=== PATIENT | male | born 1985 | race Caucasian/White ===

== ENCOUNTER 2024-09-02 11:58 | Inpatient (IN) | payer BC, SELFPAY ==
[2024-09-02] VITALS (15 sets, daily range): BP systolic 106–129; BP diastolic 66–88; PULSE 64–107; RESP 14–22; TEMP 36.6–37.3; O2SAT 96–99; BMI 27.1; BMI 24.8
--- NOTE | 2024-09-02 12:13 | EDS_ITS ---
HPI History of Present Illness Chief Complaint: Seizure Informant: patient Onset/Context/Timing Onset: Today Context: Sudden Onset Quality: Tired Location: Generalized Worsened by: Nothing Relieved by: Nothing Narrative Narrative: Patient presents with possible seizure that occurred today. Patient does not remember any of the events around this. Patient states he remembers waking up this morning and drinking coffee. Patient remembers going to work. Patient remembers doing things at work today. Patient then remembers waking up in the ambulance. Patient admits to a left frontal headache but denies any other headaches. Patient denies any nausea or vomiting. Patient states he feels tired. Patient states he had been drinking 4-5 drinks of alcohol per day but quit 5 days ago. Patient denies any chest pain or shortness of breath. Patient admits to some nausea but denies any vomiting. PFSH PFSH Medical History Marijuana abuse Alcohol abuse Allergy/AdvReac Type Severity Reaction Status Date / Time No Known Allergies Allergy Verified 09/02/24 12:03 Family History no significant family his Surgical History no surgical history Social History (Updated 09/02/24 @ 12:[address] Dain Dowd, DO) Smoking Status: Never smoker alcohol intake: current alcohol intake frequency: 3 or more drinks per day Alcohol type: beer details: Quit 5 days ago ROS ROS ED Constitutional Constitutional ED: Denies chills or fever(s) Eyes Eyes: Denies blurry vision or change in vision ENT ENT ED: Denies rhinorrhea or sore throat Cardiovascular Cardiovascular: Denies chest pain or palpitations Respiratory/Chest Respiratory/Chest: Denies cough or dyspnea Gastrointestinal Gastrointestinal: Reports nausea; Denies vomiting Genitourinary Genitourinary ED: Denies dysuria or hematuria Musculoskeletal Musculoskeletal: Denies back pain or neck pain Integumentary Denies abscess or rash Neurologic Neurologic: Reports headache(s); Denies weakness Allergic/Immunologic Allergic/Immunologic ED: Denies mouth swelling or urticaria EXAM Physical Exam Const Vital Signs: 09/02/24 11:59 09/02/24 12:58 09/02/24 13:00 Temperature 98 F Temperature Source Oral Pulse Rate 85 78 78 Respiratory Rate 16 16 16 Blood Pressure 111/88 H 110/82 H 108/78 Blood Pressure Mean 95 91 88 Pulse Ox 98 99 99 Oxygen Delivery Method Room Air 09/02/24 14:00 Temperature Temperature Source Pulse Rate 74 Respiratory Rate 16 Blood Pressure 106/74 Blood Pressure Mean 84 Pulse Ox 99 Oxygen Delivery Method Positive well nourished and well developed General Appearance ED: well developed and NAD HEENT Reports moist mucous membranes HEENT Narrative: There is some dried blood noted in the right nares. There is some edema and ecchymosis over the left periorbital area. There is no bony crepitance or step- off noted. trauma and tenderness Eyes PERRL and EOMs intact bilaterally Neck supple and no JVD Resp normal respiratory effort and clear to auscultation bilaterally Cardio regular rate and regular rhythm GI non-tender and non-distended Palpation: soft Extremity normal to inspection General Extremety ED: Negative for edema or tenderness General Extremity: Negative for edema Neuro oriented x3, CN's II-XII intact bilaterally and no sensory deficits noted Sensorium / Orientation: alert Motor Exam: strength 5/5 throughout Psych mental status grossly normal MDM MDM MDM Narrative Medical decision making narrative: Differential diagnosis includes alcohol withdrawal seizure, electrolyte abnormality, intracranial bleeding, syncopal episode, and dehydration. CT scan of the brain will be obtained to assess for intracranial bleeding. CBC will be obtained to assess for leukocytosis and anemia. Comprehensive metabolic profile will be obtained to assess for hepatic function, renal function, and electrolyte abnormality. PT with INR and PTT will be obtained to assess for coagulopathy. Lab Data Attestation: I reviewed the patient's lab results. Lab results narrative: CBC was reviewed and was within normal limits. Comprehensive metabolic profile was reviewed and was essentially within normal limits. PT with INR and PTT were reviewed and were within normal limits. Lipase was reviewed and was normal at 56. Serum alcohol level was reviewed and was less than 3.0. Labs: Laboratory Results - last 24 hr 09/02/24 11:14 WBC 10.7 RBC 4.68 Hgb 15.0 Hct 44.5 MCV 95.1 H MCH 32.1 H MCHC 33.7 RDW Std Deviation 41.4 RDW Coeff of Melvin 11.9 Plt Count 224 MPV 11.0 Immature Gran % (Auto) 0.300 Neut % (Auto) 47.9 Lymph % (Auto) 40.3 [place] % (Auto) 5.8 Eos % (Auto) 4.6 Baso % (Auto) 1.1 H Absolute Neuts (auto) 5.1 Absolute Lymphs (auto) 4.30 Nucleated RBC % 0 PT 13.0 INR 1.0 APTT 25.3 Sodium 139 Potassium 3.8 Chloride 106 Carbon Dioxide 22.0 Anion Gap 11 BUN 20 H Creatinine 1.27 Estim Creat Clear Calc 84.00 Est GFR (MDRD) Af Amer 82 Est GFR (MDRD) Non-Af 67 BUN/Creatinine Ratio 15.7 Glucose 95 Calcium 8.8 Total Bilirubin 0.30 AST 10 L ALT 23 Alkaline Phosphatase 66 Total Protein 7.4 Albumin 4.0 Globulin 3.4 Albumin/Globulin Ratio 1.2 Lipase 56 Ethyl Alcohol < 3.0 Radiography Diagnostic Testing: Clinical Impression(s) from Imaging Studies Brain CT 09/02/24 12:21 IMPRESSION: Normal CT brain without intravenous contrast. Electronically Signed: Nigel Cope MD at 13:22 EST , CT scan of the brain was obtained. There is no acute intracranial abnormality. This was interpreted by the radiologist and was also independently reviewed by myself. Management Discussion w/another healthcare provider: Hospitalist Treatment and Re-Evaluation :: Seizure precautions were maintained. Patient had no further seizure activity here. Patient is given IV fluids. Case was discussed with the hospitalist. She will admit the patient to her service. Patient understood and was agreeable with the plan. All questions were answered. Discharge Plan Triage Chief Complaint: Seizure ED Provider: Dain Dowd Dx/Rx/DC Orders Clinical Impression: Alcohol withdrawal seizure, Contusion of periorbital region, left, Closed head injury Primary Care Provider: Link Lazaro Referrals: Link Lazaro PA [Primary Care Provider] - Print Language: Estonian Disposition Disposition: Acute Care Hospital [facility]
--- NOTE | 2024-09-02 12:21 | CT_ITS ---
EXAM: CT HEAD WITHOUT INTRAVENOUS CONTRAST CLINICAL INDICATION: Seizure TECHNIQUE: Multiple axial images were obtained of the head without intravenous contrast. This CT exam was performed using one or more of the following dose reduction techniques: automated exposure control, adjustment of the mA and/or kV according to patient size, and/or use of iterative reconstruction technique. COMPARISON: No relevant prior studies available. FINDINGS: BRAIN AND EXTRA-AXIAL SPACES: Normal. Normal brain attenuation. No intra- or extra-axial hemorrhage. No acute infarct. No intracranial mass or mass effect. There is preservation of the gao/white matter interface. Posterior fossa structures are unremarkable. Ventricles are appropriate for age. No hydrocephalus. Basal cisterns are patent. BONES/JOINTS: Normal calvarium. SINUSES: No acute sinusitis. MASTOID AIR CELLS: Normal. Clear. CT/Brain/Head without Contrast IMPRESSION: Normal CT brain without intravenous contrast. Electronically Signed: Nigel Cope MD at 13:22 EST ,
[2024-09-02] MEDS: 0.9% Normal Saline (1000mL) 1,000 ML 1000 ML IV (12:36)
[2024-09-02 12:46] LABS: Absolute Neutrophil Count 5.1 X10^3/uL (2.0-7.7); Basophil# 0.12 X10^3/uL; Basophil% 1.1 % (0-1); Eosinophil# 0.49 X10^3/uL; Eosinophils% 4.6 % (0-5); Hematocrit 44.5 % (40-54); Lymphocyte % 40.3 % (19-41); Mean Corp Hgb Conc 33.7 g/dL (32-36); Mean Corpuscular Hgb 32.1 pg (27.0-32.0); Mean Corpuscular Volume 95.1 fL (80-94); Monocyte# 0.62 X10^3/uL; Monocyte% 5.8 % (0-10); NRBC Flagged by Analyzer 0 % (0-5); Neutrophil % 47.9 % (47-70); Platelet Count 224 K/mm3 (150-450); RBC Distribution Width CV 11.9 % (11.6-14.6); RBC Distribution Width SD 41.4 fl (35.1-43.9); Red Blood Count 4.68 M/mm3 (4.6-6.2); White Blood Count 10.7 K/mm3 (4.4-11.0)
[2024-09-02 12:52] LABS: Partial Thromboplast Time 25.3 Seconds (24.1-36.2)
[2024-09-02 12:56] LABS: Alcohol, Blood (Medical)-Serum < 3.0 mg/dL
[2024-09-02 13:01] LABS: ALB/GLOB Ratio 1.2 RATIO (0.9-2.4); AST(SGOT) 10 U/L (15-37); Alanine Aminotransfer ALT/SGPT 23 U/L (16-61); Alkaline Phosphatase 66 U/L (45-117); Anion Gap 11 (5-15); BUN 20 mg/dL (7-18); BUN/Creat Ratio 15.7 RATIO (10-20); Calcium,Total 8.8 mg/dL (8.5-10.1); Chloride 106 mmol/L (98-107); Creatinine, Serum 1.27 mg/dL (0.70-1.30); EST Glomerular Filtration Rate 67 mL/min (>60); Est Glom Filt Rate - Afr Amer 82 mL/min (>60); Globulin 3.4 g/dL (2.2-4.2); Glucose 95 mg/dL (74-106); Lipase 56 U/L (13-75); Potassium 3.8 mmol/L (3.5-5.1); Protein, Total 7.4 g/dL (6.4-8.2); Sodium Level 139 mmol/L (136-145)
--- NOTE | 2024-09-02 13:59 | HP.PCM.HOS_ITS ---
HPI - General General Date of Admission: 09/02/24 Date of Service: 09/02/24 Chief Complaint: Seizure HPI Narrative MARKEL CARTAGENA, is a 39 M who presented to the emergency department [facility] on 09/02/2024 after he suffered a suspected seizure. Patient reports about 5 days ago he quit drinking alcohol and had been drinking about 5 beers daily over the last 5 years. He states sometimes he drinks more and sometimes he drinks less. He quit cold turkey about 5 days ago and had been doing well but today while he was at work he had an event where he fell and does not remember any of the circumstances surrounding the event. He stated he remembered getting up eating breakfast and drinking coffee, going to work this morning, and then remembers waking up in the ambulance. He did not have any loss of bowel or bladder function and denies biting his tongue. Exam for this is unremarkable. He has had no nausea or vomiting but states he feels tired now. He quit smoking about 5 years ago and has used marijuana intermittently but no recent use. During his fall he hit his head and appeared to be unguarded with protective extension and he has a large ecchymotic area over his left eye Vital signs on presentation demonstrated a temperature of 98, heart rate 85, respiratory rate 16, blood pressure 111/88, pulse ox 98% on room air. CBC is overtly unremarkable other than macrocytosis is noted with a normal hemoglobin. Coags are normal. Chemistry panel is unremarkable. Lipase is normal. Alcohol level is less than 3. CT of the head was done due to trauma and was normal. This is suspected to be an alcohol withdrawal seizure. Patient has not ever stopped drinking for extended period of time and never had withdrawal seizure previously. Will admit to complete workup. [facility], [facility] Medical History Marijuana abuse Alcohol abuse Allergy/AdvReac Type Severity Reaction Status Date / Time No Known Allergies Allergy Verified 09/02/24 12:03 Family History no significant family his no significant family history Surgical History no surgical history no surgical history Social History (Updated 09/02/24 @ 14:[address] Natalie Adams, ) household members: significant other housing: house current occupational status: employed current occupation: Works at [employer] in [place] Smoking Status: Former smoker how long ago did patient quit smokin years ago alcohol intake: current alcohol intake frequency: 3 or more drinks per day Alcohol type: beer details: Quit 5 days ago substance use type: former substance user Date of last use: Marijuana ROS Constitutional Constitutional: Denies anorexia, change in weight, chills, fatigue, fever(s), malaise, night sweats, weakness or other Eyes Eyes: Denies blurry vision, change in eye color, change in vision, discharge from eye(s), double vision, erythema, eye pain, loss of vision or other ENT HEENT: Reports headache(s); Denies abnormal hearing, dysphagia, ear pain, epistaxis, hearing loss, nasal congestion, nasal discharge, post nasal drip, sinus pressure, sore throat or other Cardiovascular Cardiovascular: Denies chest pain, claudication, dyspnea on exertion, edema, lightheadedness, orthopnea, palpitations, paroxysmal nocturnal dyspnea, rapid heart rate, syncope or other Respiratory/Chest Respiratory/Chest: Denies cough, dyspnea, excessive phlegm production, hemoptysis, productive cough, shortness of breath at rest, shortness of breath with exertion, wheezing or other Gastrointestinal Gastrointestinal: Denies abdominal pain, coffee ground emesis, constipation, diarrhea, dyspepsia, hematemesis, hematochezia, loose stools, melena, nausea, vomiting or other Genitourinary Genitourinary: Denies burning urination, difficulty urinating, dysuria, hematuria, nocturia, urinary frequency, urinary hesitancy, urinary incontinence, urinary urgency or other Musculoskeletal Musculoskeletal: Denies arthralgias, back pain, joint pain, joint stiffness, joint swelling, myalgias, neck pain or other Neurologic Neurologic: Reports seizures; Denies abnormal gait, abnormal speech, confusion, disequilibrium, dizziness, focal weakness, headache(s), numbness, paresthesias, seizure-like activity, syncope, tingling, tremor(s) or other Psychiatric Psychiatric: Reports other Details: Hearing abnormal conversations of what appears to be a different language or gibberish Endocrine Endocrinology: Denies change in body appearance, cold intolerance, excessive sweating, heat intolerance, polydipsia, polyuria or other Hematologic/Lymphatic Hematologic/Lymphatic: Denies anemia, easy bleeding, easy bruising, lymphadenopathy or other Allergic/Immunologic Allergic/Immunologic: Denies rhinitis, hives, eczemia, asthma or other Vital Signs Vital Signs Vital Signs: 09/02/24 11:59 09/02/24 12:58 09/02/24 13:00 Temperature 98 F Temperature Source Oral Pulse Rate 85 78 78 Respiratory Rate 16 16 16 Blood Pressure 111/88 H 110/82 H 108/78 Blood Pressure Mean 95 91 88 Pulse Ox 98 99 99 Oxygen Delivery Method Room Air Weight Weight: 88.4 kg Body Mass Index (BMI) 27.1 Physical Exam Const alert, oriented x3, no apparent distress, average body habitus, healthy appearing and well nourished Constitutional Narrative: Middle-aged, white male, sitting up in bed, significant other at bedside, patient appears comfortable, nontoxic appearing, slight lapses in memory during conversation but alert and oriented x 3 General Appearance: cooperative HEENT normocephalic, hearing grossly normal bilaterally and moist oral mucous membranes HEENT Narrative: Blood coming out of right nares that is dried, left lateral supraorbital edema and ecchymosis with superficial abrasions, Mallampati 2, no thrush, dentition is good Eyes PERRL, EOMs intact bilaterally and conjunctivae normal Eyes Narrative: No scleral icterus Resp normal respiratory effort, no retractions, no use of accessory muscles and clear to auscultation bilaterally Auscultation: Negative for rales, rhonchi or wheezes Cardio regular rate, regular rhythm, S1 normal heart sound, S2 normal heart sound, no murmurs, no rub, no gallops and no clicks GI normal to inspection, nondistended, normoactive bowel sounds, soft to palpation, non-tender and non-distended Extremity no clubbing, cyanosis or edema Neuro oriented x3, CN's II-XII intact bilaterally, moves all extremities and no focal motor deficits Speech: speech normal Psych affect normal Psych Narrative: Interacts appropriately however does have some intermittent lapses in memory, pleasant, eye contact is good Results Lab / Micro Data 09/02/24 11:14 09/02/24 11:14 Labs: Laboratory Results - last 24 hr 09/02/24 11:14: WBC 10.7, RBC 4.68, Hgb 15.0, Hct 44.5, MCV 95.1 H, MCH 32.1 H, MCHC 33.7, RDW Std Deviation 41.4, RDW Coeff of Melvin 11.9, Plt Count 224, MPV 11.0, Immature Gran % (Auto) 0.300, Neut % (Auto) 47.9, Lymph % (Auto) 40.3, [place] % (Auto) 5.8, Eos % (Auto) 4.6, Baso % (Auto) 1.1 H, Absolute Neuts (auto) 5.1, Absolute Lymphs (auto) 4.30, Nucleated RBC % 0, PT 13.0, INR 1.0, APTT 25.3, Sodium 139, Potassium 3.8, Chloride 106, Carbon Dioxide 22.0, Anion Gap 11, BUN 20 H, Creatinine 1.27, Estim Creat Clear Calc 84.00, Est GFR (MDRD) Af Amer 82, Est GFR (MDRD) Non-Af 67, BUN/Creatinine Ratio 15.7, Glucose 95, Calcium 8.8, Total Bilirubin 0.30, AST 10 L, ALT 23, Alkaline Phosphatase 66, Total Protein 7.4, Albumin 4.0, Globulin 3.4, Albumin/Globulin Ratio 1.2, Lipase 56, Ethyl Alcohol < 3.0 Imaging Radiology Impression Brain CT 09/02/24 12:21 IMPRESSION: Normal CT brain without intravenous contrast. Electronically Signed: Nigel Cope MD at 13:22 EST Reading Location ID and State: [address] [place] [address] Tel , Service support , Assessment & Plan Assessment/Plan (1) Seizure: (2) Contusion of periorbital region, left: (3) Closed head injury: (4) Alcohol abuse: PLAN: Plan Seizure -New onset -Highly suspect alcohol withdrawal seizure next-patient's last drink was 5 days ago -Check MRI with and without contrast -Check EEG -Seizure precautions -Phenobarb for alcohol withdrawal and as needed Ativan available -Will consult neurology to obtain their opinion Alcohol abuse -Patient states he has been drinking for about 5 years without stopping -Last drink was about 5 days ago -States he is currently drinking about 5 beers a day when he was drinking but a lot of those were higher percentage alcohol-based beers -Phenobarbital taper -CIWA with as needed Ativan -Thiamine and folate -As needed medications for alcohol detox symptom management -180 consultation Closed head injury/left eye contusion -Highly suspect concussion -Thought process is a little scattered at this point -MRI pending -No orbital fracture noted on CT of the head and CT of the brain was otherwise unremarkable -As needed ice -Patient is aware that his bruising will likely get worse before gets better Hearing voices -Patient indicated that he was to have an upcoming CT because when he is having conversations he will hear statements being made that are not in the Sami language and is unable to relay exactly what they are but it happens on a daily basis -This is part of the reason he stopped drinking -Workup as above -Consider outpatient psychiatry follow-up depending on findings History of tobacco abuse -Remote -Encouraged ongoing cessation History of marijuana use -Patient states he is no longer using DVT prophylaxis -Low risk -Encourage frequent and early ambulation CODE STATUS -Full code Charges/Coding Visit Charges Inpatient E&M: 05674 Init Hosp L2
--- NOTE | 2024-09-02 15:20 | CASEMGMT ---
Care Management Face to Face with patient for initial transition planning/care coordination assessment in the ED. This commercial lines underwriter introduced self and role at [facility]. Patient lying in bed, alert and oriented. Patient's Harmeet, bedside; permission given to speak with patient's present. Patient willing to participate in assessment and is able to answer all questions appropriately. Care providers, pharmacy, and demographics verified. Admitting Diagnosis: Seizure; Contusion of periorbital region, left; Closed head injury; Alcohol abuse Other diagnosis history: marijuana abuse; alcohol abuse PCP: AMINTAA Rea (patient stated needing to get a new PCP due to patient's current PCP no longer being covered under insurance) Specialists: none Preferred Pharmacy: [facility] in [place] Insurance: [place] Prescription Benefit: yes Living Will/HPOA: none; patient denies needing information during admission LNOK: Harmeet. is currently 23 weeks with a baby boy. Living Arrangements: patient lives with in a 2 story home with 4 steps to enter; full flight of stairs to go up to bedroom and bathroom; independent with all ADLs. Transportation: patient drives DME: none HHC: none SNF/Rehab: none Patient goals: Patient wishes to discharge home and denies need for SNF or HHC at this time. Patient states he has no further needs or concerns. Disposition Plan: admission to acute; RN CM/SW to follow for discharge planning needs that may arise. Mary Vera, SHUTTLE TRUCK DRIVER, SCIENTIFIC INFORMATICS LEADER
[2024-09-02] MEDS: Phenobarbital 32.4 MG Tablet 97.2 MG PO (17:39)
--- NOTE | 2024-09-02 18:32 | PN.HOSP_ITS ---
Hospitalist Note DIRECTOR IT called and MRI as patient was there for MRI with contrast and patient had a generalized tonic-clonic seizure. He was given 4 mg of Ativan. The initial 2 mg were given to abort the seizure the second 2 mg were given due to extreme agitation and marked combativeness. He did require leta for short period of time and he was transferred to the intensive care unit. Given this is his second seizure today I will stop the phenobarbital and load him with Keppra 1000 mg and start Keppra twice daily. He still need an EEG and MRI with and without contrast. For his agitation, we will go ahead and start Precedex for now. Neuro consult is pending. MRI will have to be tried tomorrow. Continue seizure precautions. ICU consultation. Initially we felt that this was withdrawal seizures however I do question whether or not there is something going on intracranially. He did have phenobarbital at about 530 orally.
[2024-09-02] MEDS: dexMEDEtomidine 400 MCG in 0.9% Normal Saline (100mL Bag) 96 ML 10.1 MCG CONT INF (18:50)
[2024-09-02] MEDS: levETIRAcetam IV 1,000 MG/100 ML BAG 400 MG IV (18:50)
[2024-09-03] VITALS (18 sets, daily range): BP systolic 85–134; BP diastolic 44–84; PULSE 54–97; RESP 10–18; TEMP 36.6–37.6; O2SAT 95–99; BMI 24.3
[2024-09-03] MEDS: dexMEDEtomidine 400 MCG in 0.9% Normal Saline (100mL Bag) 96 ML 10.1 MCG CONT INF (03:32)
[2024-09-03] MEDS: TITRATION PARAMETER CHANGE 1 EACH IV (05:19)
--- NOTE | 2024-09-03 06:12 | EX.PCM.CONCC ---
Assessment & Plan Assessment/Plan (1) Alcohol abuse: (2) Seizure: PLAN: Plan RECOMMENDATIONS: 1. Complete MRI brain this afternoon. 2. EEG has been completed with read pending. 3. Okay to discontinue Precedex and resume phenobarbital taper. 4. Continue thiamine and folic acid. 5. Continue seizure precautions and as needed Ativan. 6. Continue Keppra, pending neurology evaluation. IMPRESSIONS: 1. New onset seizures in the setting of alcohol withdrawal The patient presented to the hospital with questionable new onset seizure activity in the setting of acute alcohol withdrawal. The patient has an extensive alcohol dependency history and quit cold turkey approximately 6 days ago. At this time, the patient has been appropriately loaded on Keppra and will be maintained on seizure precautions with as needed Ativan. In the interim, MRI brain is pending along with EEG. Once testing is completed, recommend neurology evaluation. Otherwise, recommend restarting phenobarbital taper for alcohol withdrawal and continuing thiamine and folic acid. 2. History of tobacco and marijuana dependency Complicates care, management, recovery and prognosis. Continue supportive measures as noted above. This note was generated with [employer] dictation software. It may contain incorrect words, spelling, and punctuation that were not noted in checking the note before signing. HPI Consult Data Date of Consult: 09/03/24 HPI Narrative Reason for Consultation: Alcohol withdrawal with seizures HPI Narrative: The patient is a 39-year-old male, with a history as outlined below, who presented to the emergency department via EMS on September 02 with suspicion that he suffered from a seizure. The patient has a longstanding alcohol dependency history, but stated that he quit drinking approximately 6 days ago. Although he previously drank hard liquor, the patient reported that he more recently has only been drinking beer. The patient apparently had an episode where he fell at work with loss of consciousness, but the patient did not recall any of the event. He denied a history of any seizure disorder. The patient has never stopped drinking alcohol for any extended periods of time in the past. On presentation to the emergency department, the patient was afebrile and hemodynamically stable. Laboratory evaluation revealed a normal white blood cell count. Chemistry profile was unremarkable. Toxicology screen revealed an alcohol level less than 3. CT head was unremarkable. Over concerns for his presenting new onset seizures, MRI brain was ordered. He was initially placed on a phenobarbital taper along with thiamine and folic acid repletion. However, last evening, upon attempting to complete the MRI brain, a rapid response team was called for this patient after he developed a witnessed general tonic-clonic seizure. The patient was ultimately medicated with IV Ativan and loaded with Keppra. He was ultimately transferred to the medical intensive care unit, where he was placed on a Precedex infusion overnight. This morning, the patient is alert and appropriately interactive. His Precedex infusion has been discontinued. There are tentative plans to proceed with MRI brain this afternoon. EEG has been completed with neurology consultation pending. [facility] Medical History Marijuana abuse Alcohol abuse Allergy/AdvReac Type Severity Reaction Status Date / Time No Known Allergies Allergy Verified 09/02/24 12:03 Family History no significant family his Surgical History no surgical history Social History (Updated 09/02/24 @ 14:[address] Natalie Adams, DO) household members: significant other housing: house current occupational status: employed current occupation: Works at [employer] in [place] Smoking Status: Former smoker how long ago did patient quit smokin years ago alcohol intake: current alcohol intake frequency: 3 or more drinks per day Alcohol type: beer details: Quit 5 days ago substance use type: former substance user Date of last use: Marijuana ROS ROS Narrative 10 systems were reviewed with pertinent positives as noted in the HPI above. Physical Exam Const alert and no apparent distress Constitutional Narrative: is present at the bedside. General Appearance: cooperative HEENT normocephalic and head/scalp atraumatic Eyes EOMs intact bilaterally, conjunctivae normal and no scleral icterus Neck supple General: trachea midline Chest inspection of chest normal Resp normal respiratory effort Auscultation: Negative for rales, rhonchi or wheezes Cardio regular rate and regular rhythm GI normal to inspection, nondistended, normoactive bowel sounds Extremity no clubbing, cyanosis or edema Skin no rashes or lesions noted Neuro CN's II-XII intact bilaterally, moves all extremities and no focal motor deficits Psych cooperative and affect normal Lab / Micro Data 09/02/24 11:14 09/02/24 11:14 Labs: Laboratory Results - last 24 hr 09/02/24 11:14: WBC 10.7, RBC 4.68, Hgb 15.0, Hct 44.5, MCV 95.1 H, MCH 32.1 H, MCHC 33.7, RDW Std Deviation 41.4, RDW Coeff of Melvin 11.9, Plt Count 224, MPV 11.0, Immature Gran % (Auto) 0.300, Neut % (Auto) 47.9, Lymph % (Auto) 40.3, [place] % (Auto) 5.8, Eos % (Auto) 4.6, Baso % (Auto) 1.1 H, Absolute Neuts (auto) 5.1, Absolute Lymphs (auto) 4.30, Nucleated RBC % 0, PT 13.0, INR 1.0, APTT 25.3, Sodium 139, Potassium 3.8, Chloride 106, Carbon Dioxide 22.0, Anion Gap 11, BUN 20 H, Creatinine 1.27, Estim Creat Clear Calc 84.00, Est GFR (MDRD) Af Amer 82, Est GFR (MDRD) Non-Af 67, BUN/Creatinine Ratio 15.7, Glucose 95, Calcium 8.8, Total Bilirubin 0.30, AST 10 L, ALT 23, Alkaline Phosphatase 66, Total Protein 7.4, Albumin 4.0, Globulin 3.4, Albumin/Globulin Ratio 1.2, Lipase 56, Ethyl Alcohol < 3.0 Imaging Radiology Impression Brain CT 09/02/24 12:21 IMPRESSION: Normal CT brain without intravenous contrast. Electronically Signed: Nigel Cope MD at 13:22 EST , Charges/Coding Visit Charges Inpatient E&M: 98875 Init Hosp L3
--- NOTE | 2024-09-03 07:48 | PN.HOSP_ITS ---
Reason for Visit Reason for Visit: Diagnoses Alcohol abuse, uncomplicated (09/02/24) Unspecified convulsions (09/02/24) Contusion of eyeball and orbital tissues, left eye, initial encounter (09/02/24) Unspecified injury of head, initial encounter (09/02/24) Objective Data Objective Data Vital Signs: Vital Signs Temp Pulse Resp BP Pulse Ox O2 Del Method 99.3 F H 66 12 108/65 97 Room Air 09/03/24 05:00 09/03/24 07:00 09/03/24 07:00 09/03/24 07:00 09/03/24 07:00 09/03/24 07:00 Oxygen Delivery Method Room Air Weight: 174 lb 2.643 oz Body Mass Index (BMI) 24.3 Intake & Output: Intake and Output for Last 24 Hours 09/01/24 09/02/24 09/03/24 23:59 23:59 23:59 Intake Total 1292.10 / 1302.20 80.20 / 80.20 Output Total 700 / 700 Balance 1292.10 / 602.20 -619.80 / -619.80 Lab / Micro Data 09/02/24 11:14 09/02/24 11:14 Labs: Laboratory Results - last 24 hr 09/02/24 11:14: WBC 10.7, RBC 4.68, Hgb 15.0, Hct 44.5, MCV 95.1 H, MCH 32.1 H, MCHC 33.7, RDW Std Deviation 41.4, RDW Coeff of Melvin 11.9, Plt Count 224, MPV 11.0, Immature Gran % (Auto) 0.300, Neut % (Auto) 47.9, Lymph % (Auto) 40.3, [place] % (Auto) 5.8, Eos % (Auto) 4.6, Baso % (Auto) 1.1 H, Absolute Neuts (auto) 5.1, Absolute Lymphs (auto) 4.30, Nucleated RBC % 0, PT 13.0, INR 1.0, APTT 25.3, Sodium 139, Potassium 3.8, Chloride 106, Carbon Dioxide 22.0, Anion Gap 11, BUN 20 H, Creatinine 1.27, Estim Creat Clear Calc 84.00, Est GFR (MDRD) Af Amer 82, Est GFR (MDRD) Non-Af 67, BUN/Creatinine Ratio 15.7, Glucose 95, Calcium 8.8, Total Bilirubin 0.30, AST 10 L, ALT 23, Alkaline Phosphatase 66, Total Protein 7.4, Albumin 4.0, Globulin 3.4, Albumin/Globulin Ratio 1.2, Lipase 56, Ethyl Alcohol < 3.0 Radiography Diagnostic Testing: Radiology Impression Brain CT 09/02/24 12:21 IMPRESSION: Normal CT brain without intravenous contrast. Electronically Signed: Nigel Cope MD at 13:22 EST , Assessment & Plan Assessment/Plan (1) Seizure: (2) Contusion of periorbital region, left: (3) Closed head injury: (4) Alcohol abuse: PLAN: Plan 39-year-old gentleman was admitted after brought by EMS for seizure. At work, patient came out of the freezer falling to the ground and began having a seizure lasting few minutes and patient had loss of consciousness for approximately couple minutes as documented by EMS from the bystander report. He was also noted dried blood from the right nostril, redness in the left periorbital area and patient was confused and does not remember about the event. Patient does not have prior history of seizure. Patient also has a history of drinking alcohol, 5 beers daily for last 5 years and quit suddenly 5 days ago. Seizure -New onset -Highly suspect alcohol withdrawal seizure next-patient's last drink was 5 days ago -Check MRI with and without contrast -Check EEG -Seizure precautions -Phenobarb for alcohol withdrawal and as needed Ativan available -Will consult neurology to obtain their opinion Alcohol abuse -Patient states he has been drinking for about 5 years without stopping -Last drink was about 5 days ago -States he is currently drinking about 5 beers a day when he was drinking but a lot of those were higher percentage alcohol-based beers -Phenobarbital taper -CIWA with as needed Ativan -Thiamine and folate -As needed medications for alcohol detox symptom management -180 consultation Closed head injury/left eye contusion -Highly suspect concussion -Thought process is a little scattered at this point -MRI pending -No orbital fracture noted on CT of the head and CT of the brain was otherwise unremarkable -As needed ice -Patient is aware that his bruising will likely get worse before gets better Hearing voices -Patient indicated that he was to have an upcoming CT because when he is having conversations he will hear statements being made that are not in the [place] language and is unable to relay exactly what they are but it happens on a daily basis -This is part of the reason he stopped drinking -Workup as above -Consider outpatient psychiatry follow-up depending on findings History of tobacco abuse -Remote -Encouraged ongoing cessation History of marijuana use -Patient states he is no longer using DVT prophylaxis -Low risk -Encourage frequent and early ambulation CODE STATUS -Full code
--- NOTE | 2024-09-03 07:48 | PCM.PN.HOSP ---
Reason for Visit Reason for Visit: Diagnoses Alcohol abuse, uncomplicated (09/02/24) Unspecified convulsions (09/02/24) Contusion of eyeball and orbital tissues, left eye, initial encounter (09/02/24) Unspecified injury of head, initial encounter (09/02/24) Objective Data Objective Data Vital Signs: Vital Signs Temp Pulse Resp BP Pulse Ox O2 Del Method 99.3 F H 66 12 108/65 97 Room Air 09/03/24 05:00 09/03/24 07:00 09/03/24 07:00 09/03/24 07:00 09/03/24 07:00 09/03/24 07:00 Oxygen Delivery Method Room Air Weight: 174 lb 2.643 oz Body Mass Index (BMI) 24.3 Intake & Output: Intake and Output for Last 24 Hours 09/01/24 09/02/24 09/03/24 23:59 23:59 23:59 Intake Total 1292.10 / 1302.20 80.20 / 80.20 Output Total 700 / 700 Balance 1292.10 / 602.20 -619.80 / -619.80 Lab / Micro Data 09/02/24 11:14 09/02/24 11:14 Labs: Laboratory Results - last 24 hr 09/02/24 11:14: WBC 10.7, RBC 4.68, Hgb 15.0, Hct 44.5, MCV 95.1 H, MCH 32.1 H, MCHC 33.7, RDW Std Deviation 41.4, RDW Coeff of Melvin 11.9, Plt Count 224, MPV 11.0, Immature Gran % (Auto) 0.300, Neut % (Auto) 47.9, Lymph % (Auto) 40.3, [place] % (Auto) 5.8, Eos % (Auto) 4.6, Baso % (Auto) 1.1 H, Absolute Neuts (auto) 5.1, Absolute Lymphs (auto) 4.30, Nucleated RBC % 0, PT 13.0, INR 1.0, APTT 25.3, Sodium 139, Potassium 3.8, Chloride 106, Carbon Dioxide 22.0, Anion Gap 11, BUN 20 H, Creatinine 1.27, Estim Creat Clear Calc 84.00, Est GFR (MDRD) Af Amer 82, Est GFR (MDRD) Non-Af 67, BUN/Creatinine Ratio 15.7, Glucose 95, Calcium 8.8, Total Bilirubin 0.30, AST 10 L, ALT 23, Alkaline Phosphatase 66, Total Protein 7.4, Albumin 4.0, Globulin 3.4, Albumin/Globulin Ratio 1.2, Lipase 56, Ethyl Alcohol < 3.0 Radiography Diagnostic Testing: Radiology Impression Brain CT 09/02/24 12:21 IMPRESSION: Normal CT brain without intravenous contrast. Electronically Signed: Nigel Cope MD at 13:22 EST , Physical Exam Narrative Seen and examined. Patient was yesterday for seizure. Patient does not remember the seizure event. Physical exam General: Alert, Oriented x3, Cooperative HEENT: Conjunctiva clear atraumatic, PERRLA, EOMI, Normocephalic Oral: No dried blood in the oral cavity or nasal cavit. No Gingival or Mucosal Lesions/ Ulcerations Neck: Supple, No JVD, Negative Carotid Bruits Chest wall/Lungs: Air entry diminished in bilateral lung bases. No crepitation/rhonchi Cardiovascular: Regular rate, Regular Rhythm, Normal S1, Normal S2, No M/G/R Abdomen: Bowel Sounds Present, Soft, Non Tender, Non-Distended : No dysuria. No renal angle tenderness. No suprapubic tenderness. Extremities: No edema, Capillary Refill Less than 3 Seconds Skin: Faint bruise/abrasion over left periorbital area. Musculoskeletal: No Tenderness to Palpation of Joints or Extremities Neurological: Cranial nerves II-XII grossly intact, DTR 2+/4. No acute focal neurological deficit. Psych/Mental Status: Normal Affect, Appropriate. Assessment & Plan Assessment/Plan (1) Seizure: (2) Contusion of periorbital region, left: (3) Closed head injury: (4) Alcohol abuse: PLAN: Plan 39-year-old gentleman was admitted after brought by EMS for seizure. At work, patient came out of the freezer falling to the ground and began having a seizure lasting few minutes and patient had loss of consciousness for approximately couple minutes as documented by EMS from the bystander report. He was also noted dried blood from the right nostril, redness in the left periorbital area and patient was confused and does not remember about the event. Patient does not have prior history of seizure. Patient also has a history of drinking alcohol, 5 beers daily for last 5 years and quit suddenly 5 days ago. 1. New onset tonic-clonic seizure, most likely alcohol withdrawal seizure: It seems patient had 2 s generalized tonic-clonic seizure episode 1 during work and another MRI suite which was complicated with agitation and mild combativeness and required 4 point leather restraint. As per nursing staff, he had restrained at that time but now he is off restraint. Awake and alert oriented x 3. Currently patient going EEG. MRI pending. CT head unenhanced reported normal. -Phenobarb for alcohol withdrawal and as needed Ativan available Mechanical Assembler and neurologist consulted. 2. Possible acute alcohol withdrawal syndrome with seizure with history of chronic alcohol use and dependence: As per H&P, patient had some auditory hallucination. Patient on phenobarbital based order set along with other adjunctive medications gabapentin, Bentyl, Vistaril, clonidine, Klonopin as needed for alcohol withdrawal symptom control. Patient is on thiamine and folate acid. CIWA monitor. cafe manager 180 consulted. 3 closed head injury/left eye contusion: Bruising is getting better -No orbital fracture noted on CT of the head and CT of the brain was otherwise unremarkable 4. History of remote tobacco use and marijuana use: Reinforced continue cessation. Patient no longer using marijuana or smoking cigarettes or nicotine use. DVT prophylaxis -Low risk -Encourage frequent and early ambulation CODE STATUS -Full code Charges/Coding Addendum Addendum: Total time of the visit including total time spent in counseling or coordination of care, (more than 50% of the total time, spent in obtaining medical information from nurses and other ancillary care providers ,explaining to the patient about labs, imaging, diagnosis and management of active complex medical conditions), history taking, neurologist or compounder sterile products consulted, review of labs and imaging is 35 minutes. Visit Charges Inpatient E&M: 11851 Subs Hosp L3
--- NOTE | 2024-09-03 09:00 | MRI_ITS ---
STUDY: MRI BRAIN WITH AND WITHOUT CONTRAST REASON FOR EXAM: Male, 39 years old. seizure TECHNIQUE: Standardized multiplanar fat and water weighted pulse sequences were obtained. IV 17ml clariscan was administered for the contrast portion of the examination. COMPARISON: None. FINDINGS: Normal size of the ventricles and extra-axial spaces for the patient''s age. Single ovoid rounded area of bright signal in the caudate nucleus lentiform junction on the right seen on image series 6 and series 5 most likely representing a posttraumatic contusion. There is no associated hemorrhage or vasogenic edema with this finding. Normal remaining white matter tracts of the supratentorial brain. Normal remaining aspects of the bilateral frontal poles, and orbital frontal and gyrus recti of the frontal lobes. Normal bilateral temporal tips of the temporal lobes. There are no white matter shear injuries (diffuse axonal injuries). There are no parenchymal hemorrhages or hematomas. There are no findings to suggest prior closed head parenchymal injury of the brain. There are no demyelinating plagues of the supratentorial brain, brainstem or cerebellum. There are no findings suspicious for multiple sclerosis (MS). There is no evidence for recent intracranial ischemia or other cause of cytotoxic edema on diffusion weighted imaging (DWI). No hydrocephalus or midline shift or transtentorial herniation is present. No mass or infiltrative process or vasogenic edema is present in the brain parenchyma. There are no enhancing lesions of the brain parenchyma or abnormal thickening or enhancement of the meninges or dura. No skull lesions are seen. Normal bilateral basal ganglia. Normal thalami. There is no extra-axial fluid accumulation. Normal flow voids within the major intracranial circulation suggesting patency by spin echo criteria. Normal venous enhancement. There is no enhancing intra-axial or extra-axial abnormality. Normal sella turcica, pituitary gland, infundibular stalk, optic chiasm and hypothalamus. Normal tectal plate and pineal gland. Normal midbrain, justin and medulla. Normal cerebellum. Normal basal cisterns. Normal bilateral temporal bones. Normal bilateral internal auditory canals. No demonstrated orbital abnormality, within the constraints of a routine brain study. Normal visualized paranasal sinuses. Normal calvarium and skull base. Normal visualized soft tissue structures. Normal visualized upper cervical spine. MRI/Brain W/WO Contrast IMPRESSION: Small right frontal lobe contusion 1. Single ovoid rounded area of bright signal in the caudate nucleus lentiform junction on the right seen on image series 6 and series 5 most likely representing a posttraumatic contusion. There is no associated hemorrhage or vasogenic edema with this finding. Normal remaining white matter tracts of the supratentorial brain. Electronically Signed: Jaydon Benson MD at 15:38 EST ,
--- NOTE | 2024-09-03 10:15 | CASEMGMT ---
RN GERARD Assessment Face to Face with patient for initial transition planning/care coordination assessment. RN GERARD introduced self and role at [facility], pt voices understanding. Pt is A&Ox4 and is resting comfortably in bed and is calm. Pt at bedside. Care providers, pharmacy, and demographics verified. Admitting dx: Seizure suspected from ETOH withdrawal LACE Strata: 1 PCP: Link Lazaro Specialists: Denies Preferred Pharmacy: [facility] Insurance: ANTHEM Prescription Benefit: Yes LNOK: Harmeet Priscilla (W) Living Arrangements: Pt lives with his in a 2 story home with 3 steps to enter ADLs/IADLs: Ind Transportation: Self, DME: Denies uses or needs HHC/SNF: Denies Hx or needs ETOH: Pt states that he was drinking 5 beers per day for the past 5 years. Pt states that he quit 5 days ago.This RN CM inquired if the pt would like resources for this issue. Pt denies wanting any resource for this. SW notified. Pt?s goal: Return home Plan: Home, anticipate no needs. 6-Click is 24. Pt states that he feels safe returning home with his once he is medically ready and denies further questions or concerns at this time. Follow neuro consult. Pt is scheduled for an MRI today at 1430. CM remains available as needed. Pancho Booth RN, CM
[2024-09-03] MEDS: Folic Acid 1 MG Tablet PO (10:32)
[2024-09-03] MEDS: Phenobarbital 32.4 MG Tablet 97.2 MG PO ×3 (10:32→20:47)
[2024-09-03] MEDS: Thiamine Hydrochloride 100 MG Tablet PO (10:32)
--- NOTE | 2024-09-03 12:13 | CASEMGMT ---
Social Work- SW participated in interdisciplinary rounds on pt. Pt declines wanting any ETOH resources. No SW needs present at this time. SRINI Enriuqez
--- NOTE | 2024-09-03 12:35 | NEURO.CONS ---
Assessment and Plan: Neuro Assessment/Plan MARKEL CARTAGENA is a 39 M with a past medical history of daily alcohol use, being evaluated by Teleneurology for first time seizure (2 seizure within 24 hour period) in the setting of day 5 s/p alcohol cessation. Neurologic examination is normal. Suspect alcohol withdrawal seizure. Agree with phenobarbital taper for alcohol withdrawal. Recommend MRI brain without contrast and rEEG. Is these are normal, would not recommend AED at discharge. Will need neurology follow up. Recommendations 1. MRI brain without contrast 2. routine EEG 3. Neurology follow up in the outpatient setting 4. Recommend driving limitations and seizure precautions until established with neurologist in the outpatient setting I personally attended this patient and spent a total time of 45 minutes evaluating this patient including clinical assessment, review of chart, medical history imaging, and determining appropriate treatment and workup. HPI Consult Data Date of Consult: 09/03/24 HPI Narrative HPI Narrative: This is a 39-year-old gentleman with a past medical history of alcohol abuse who presented to [facility] ED on 09/02/2024 for seizure like activity. Patient remembers being at work, and when he was walking out of the work cooler he developed numbness involving the right side of his head with associated visual distortion( unable to describe further) Per notes, he then had witnessed generalized seizure activity. He reports loss of consciousness, does not remember much else of the day. He was noted to have another event in the MRI scanner. Seizure in the MRI scanner described as generalized tonic clonic and he was given 2mg Ativan to abort the seizure and another 2 mg for post-ictal agitation. He has been drinking 4-5 drinks of alcohol per day, but quit 5 days ago. Vitals on presentation to the ED show normal HR, RR, BP and temperature. Labs on admission show normal WBC count and differential. Creatinine 1.27 with BUN 20. Normal AST/ALT. CT head completed 09/02 was normal.He has been started on phenobarbital for alcohol withdrawal. In regards to alcohol use, he drinks beer daily. On a typical day will drink 3 beers (yuengling or dos equis), some days can range from 5-8 beers, some days will drink beer with higher alcohol content. No hard liquior. He would like to go alcohol free for at least a month. [facility] Medical History Marijuana abuse Alcohol abuse Allergy/AdvReac Type Severity Reaction Status Date / Time No Known Allergies Allergy Verified 09/02/24 12:03 Family History no significant family his Surgical History no surgical history Social History (Updated 09/02/24 @ 14:[address] Natalie Adams DO) household members: significant other housing: house current occupational status: employed current occupation: Works at [employer] Smoking Status: Former smoker how long ago did patient quit smokin years ago alcohol intake: current alcohol intake frequency: 3 or more drinks per day Alcohol type: beer details: Quit 5 days ago substance use type: former substance user Date of last use: Marijuana Vital Signs Vital Signs Vital Signs: 09/02/24 12:58 09/02/24 13:00 09/02/24 14:00 Temperature Temperature Source Pulse Rate 78 78 74 Pulse Strength Respiratory Rate 16 16 16 Respiratory Effort Respiratory Depth Respiratory Pattern Blood Pressure 110/82 H 108/78 106/74 Blood Pressure Mean 91 88 84 Blood Pressure Source Blood Pressure Position Blood Pressure Location Pulse Ox 99 99 99 Oxygen Delivery Method 09/02/24 15:00 09/02/24 16:00 09/02/24 16:54 Temperature 97.9 F 98.2 F Temperature Source Temporal Pulse Rate 72 72 64 Pulse Strength Respiratory Rate 16 16 18 Respiratory Effort Respiratory Depth Respiratory Pattern Blood Pressure 110/70 110/70 129/83 H Blood Pressure Mean 83 83 98 Blood Pressure Source Monitor Blood Pressure Position Semi-Fowlers Blood Pressure Location Right Arm Pulse Ox 99 99 98 Oxygen Delivery Method Room Air 09/02/24 16:54 09/02/24 18:45 09/02/24 19:00 Temperature Temperature Source Pulse Rate 107 H 105 H Pulse Strength Respiratory Rate 22 H 20 H Respiratory Effort Respiratory Depth Respiratory Pattern Blood Pressure 121/80 H 129/82 H Blood Pressure Mean 93 97 Blood Pressure Source Monitor Monitor Blood Pressure Position Supine Supine Blood Pressure Location Left Arm Left Arm Pulse Ox 98 99 Oxygen Delivery Method Room Air Room Air Room Air 09/02/24 19:00 09/02/24 19:30 09/02/24 20:00 Temperature 99.2 F H Temperature Source Temporal Pulse Rate 90 100 70 Pulse Strength Respiratory Rate 21 H 14 Respiratory Effort Respiratory Depth Respiratory Pattern Blood Pressure 106/88 H 113/66 Blood Pressure Mean 94 81 Blood Pressure Source Monitor Monitor Blood Pressure Position Supine Supine Blood Pressure Location Left Arm Left Arm Pulse Ox 96 98 Oxygen Delivery Method Room Air Room Air 09/02/24 20:00 09/02/24 20:30 09/02/24 20:35 Temperature Temperature Source Pulse Rate 73 Pulse Strength Weak (1+) Respiratory Rate 15 Respiratory Effort Normal Non-Labored Respiratory Depth Normal Respiratory Pattern Normal Blood Pressure 115/67 Blood Pressure Mean 83 Blood Pressure Source Monitor Blood Pressure Position Right Lateral Blood Pressure Location Left Arm Pulse Ox 98 Oxygen Delivery Method Room Air Room Air 09/02/24 21:00 09/02/24 22:00 09/02/24 22:00 Temperature 99.2 F H Temperature Source Temporal Pulse Rate 76 79 79 Pulse Strength Respiratory Rate 16 16 16 Respiratory Effort Respiratory Depth Respiratory Pattern Blood Pressure 110/69 121/70 H 121/70 H Blood Pressure Mean 82 87 87 Blood Pressure Source Monitor Monitor Blood Pressure Position Right Lateral Right Lateral Blood Pressure Location Left Arm Left Arm Pulse Ox 96 97 97 Oxygen Delivery Method Room Air Room Air Room Air 09/02/24 23:00 09/02/24 23:00 09/03/24 00:00 Temperature 98.5 F Temperature Source Temporal Pulse Rate 84 84 77 Pulse Strength Respiratory Rate 15 15 Respiratory Effort Respiratory Depth Respiratory Pattern Blood Pressure 113/68 111/68 Blood Pressure Mean 83 82 Blood Pressure Source Monitor Monitor Blood Pressure Position Right Lateral Semi-Fowlers Blood Pressure Location Left Arm Right Arm Pulse Ox 96 99 Oxygen Delivery Method Room Air Room Air 09/03/24 00:00 09/03/24 01:00 09/03/24 02:00 Temperature Temperature Source Pulse Rate 73 74 Pulse Strength Respiratory Rate 15 16 Respiratory Effort Normal Non-Labored Respiratory Depth Normal Respiratory Pattern Normal Blood Pressure 100/60 109/67 Blood Pressure Mean 73 81 Blood Pressure Source Monitor Monitor Blood Pressure Position Right Lateral Right Lateral Blood Pressure Location Left Arm Left Arm Pulse Ox 98 96 Oxygen Delivery Method Room Air Room Air Room Air 09/03/24 03:00 09/03/24 03:00 09/03/24 04:00 Temperature 98.5 F Temperature Source Temporal Pulse Rate 71 70 66 Pulse Strength Respiratory Rate 18 13 Respiratory Effort Respiratory Depth Respiratory Pattern Blood Pressure 127/44 H 107/78 Blood Pressure Mean 71 87 Blood Pressure Source Monitor Monitor Blood Pressure Position Right Lateral Right Lateral Blood Pressure Location Left Arm Left Arm Pulse Ox 97 97 Oxygen Delivery Method Room Air Room Air 09/03/24 04:00 09/03/24 05:00 09/03/24 06:00 Temperature 99.3 F H Temperature Source Temporal Pulse Rate 67 61 Pulse Strength Respiratory Rate 16 17 Respiratory Effort Normal Non-Labored Respiratory Depth Normal Respiratory Pattern Normal Blood Pressure 117/80 110/54 L Blood Pressure Mean 92 72 Blood Pressure Source Monitor Blood Pressure Position Right Lateral Blood Pressure Location Left Arm Pulse Ox 97 98 Oxygen Delivery Method Room Air Room Air Room Air 09/03/24 07:00 09/03/24 08:27 Temperature Temperature Source Pulse Rate 66 Pulse Strength Respiratory Rate 12 Respiratory Effort Respiratory Depth Respiratory Pattern Blood Pressure 108/65 Blood Pressure Mean 79 Blood Pressure Source Monitor Blood Pressure Position Right Lateral Blood Pressure Location Left Arm Pulse Ox 97 97 Oxygen Delivery Method Room Air Room Air Weight Weight: 79 kg Body Mass Index (BMI) 24.3 EEG Results Procedure Details EEG Procedure Details: pending Physical Exam Neuro Neuro Narrative: Mental Status: The patient was alert and oriented to person, place, month, and year Language: speech is fluent and without dysarthria. Naming and repletion are intact Cranial Nerves: Pupils are equal and reactive to light.? EOMI, no nystagmus is appreciated, visual lundy full, face is symmetric at rest and with activation, hearing is intact to conversational tone, tongue protrudes midline. Motor: ?All extremities are antigravity. No pronator drift noted. Muscle bulk appears normal. Sensation- Intact to light touch bilaterally Coordination: No dysmetria on [id number], finger follow finger or [id number]. No truncal ataxia Gait: Observation of casual gait shows ability to get out of bed without assistance, normal stride length, mildly wide based gait. No truncal ataxia Lab / Micro Data 09/02/24 11:14 09/02/24 11:14 Labs: Laboratory Results - last 24 hr 09/02/24 11:14: WBC 10.7, RBC 4.68, Hgb 15.0, Hct 44.5, MCV 95.1 H, MCH 32.1 H, MCHC 33.7, RDW Std Deviation 41.4, RDW Coeff of Melvin 11.9, Plt Count 224, MPV 11.0, Immature Gran % (Auto) 0.300, Neut % (Auto) 47.9, Lymph % (Auto) 40.3, [place] % (Auto) 5.8, Eos % (Auto) 4.6, Baso % (Auto) 1.1 H, Absolute Neuts (auto) 5.1, Absolute Lymphs (auto) 4.30, Nucleated RBC % 0, PT 13.0, INR 1.0, APTT 25.3, Sodium 139, Potassium 3.8, Chloride 106, Carbon Dioxide 22.0, Anion Gap 11, BUN 20 H, Creatinine 1.27, Estim Creat Clear Calc 84.00, Est GFR (MDRD) Af Amer 82, Est GFR (MDRD) Non-Af 67, BUN/Creatinine Ratio 15.7, Glucose 95, Calcium 8.8, Total Bilirubin 0.30, AST 10 L, ALT 23, Alkaline Phosphatase 66, Total Protein 7.4, Albumin 4.0, Globulin 3.4, Albumin/Globulin Ratio 1.2, Lipase 56, Ethyl Alcohol < 3.0 Imaging Radiology Impression Brain CT 09/02/24 12:21 IMPRESSION: Normal CT brain without intravenous contrast. Electronically Signed: Nigel Cope MD at 13:22 EST , Active Medications Active Medications Active Medications: Current Medications Generic Name Dose Route Start Last Admin Trade Name Freq PRN Reason Stop Dose Admin Acetaminophen 650 mg 09/02/24 17:11 Acetaminophen 325 Mg Tablet PO Q6H PRN PRN Pain 1-10 Or Fever>100.7 Dicyclomine HCl 20 mg 09/02/24 17:11 Dicyclomine 10 Mg Capsule PO Q6H PRN PRN abdominal discomfort Folic Acid 1 mg 09/03/24 08:00 09/03/24 10:32 Folic Acid 1 Mg Tablet PO 1 mg DAILY@0800 [facility] Administration Gabapentin 300 mg 09/02/24 17:11 Gabapentin 300 Mg Capsule PO Q8H PRN PRN moderate to severe anxiety Hydroxyzine Pamoate 50 mg 09/02/24 17:11 Hydroxyzine Agnieszka 25 Mg Capsule PO Q4H PRN PRN mild anxiety Levetiracetam 1,000 mg in 100 mls @ 400 mls/hr 09/03/24 10:00 IV Q12 JHONNY Ibuprofen 400 mg 09/02/24 17:11 Ibuprofen 400 Mg Tablet PO Q4H PRN PRN Pain 1-10 Or Fever >100.7 Loperamide HCl 2 mg 09/02/24 17:11 Loperamide 2 Mg Capsule PO Q4H PRN PRN loose stools Lorazepam 2 mg 09/02/24 17:11 Lorazepam 2 Mg/Ml Syringe IV UD PRN CIWA score >/=15. Protocol Lorazepam 2 mg 09/02/24 17:11 Lorazepam 2 Mg/Ml Syringe IV Q2H PRN PRN CIWA score > 8 but <15 Protocol Lorazepam 2 mg 09/02/24 17:11 Lorazepam 1 Mg Tablet PO UD PRN CIWA score >/=15. Protocol Lorazepam 2 mg 09/02/24 17:11 Lorazepam 1 Mg Tablet PO Q2H PRN PRN CIWA score > 8 but <15 Protocol Melatonin 3 mg 09/02/24 17:11 Melatonin 3 Mg Tablet PO QHS PRN PRN INSOMNIA Ondansetron HCl 8 mg 09/02/24 17:11 Ondansetron 8 Mg Tablet PO Q8H PRN PRN NAUSEA Phenobarbital 97.2 mg 09/03/24 09:30 09/03/24 10:32 Phenobarbital 32.4 Mg Tablet PO 09/07/24 17:29 97.2 mg Q4H JHONNY Administration Taper Sodium Chloride 10 - 40 ml 09/02/24 17:06 0.9% Saline Lock 10 Ml Syringe IV UD PRN SALINE FLUSH Thiamine HCl 100 mg 09/03/24 08:00 09/03/24 10:32 Thiamine Hydrochloride 100 Mg Tablet PO 100 mg DAILYCM JHONNY Administration Trazodone HCl 100 mg 09/02/24 17:11 Trazodone 100 Mg Tablet PO QHS PRN INSOMNIA
[2024-09-03 13:56] LABS: Absolute Lymphocyte Count 2.05 X10^3/uL (0.83-4.51); Absolute Neutrophil Count 5.5 X10^3/uL (2.0-7.7); Basophil# 0.08 X10^3/uL; Basophil% 0.9 % (0-1); Eosinophil# 0.27 X10^3/uL; Eosinophils% 3.2 % (0-5); Hematocrit 41.2 % (40-54); Hemoglobin 14.4 g/dL (13.0-16.5); Lymphocyte # 2.05 X10^3/ul (0.83-4.51); Lymphocyte % 23.9 % (19-41); Mean Corpuscular Hgb 32.8 pg (27.0-32.0); Mean Corpuscular Volume 93.8 fL (80-94); Mean Platelet Vol. 10.3 fl (6.2-12.0); Monocyte# 0.65 X10^3/uL; Monocyte% 7.6 % (0-10); NRBC Flagged by Analyzer 0 % (0-5); Neutrophil # 5.47 X10^3/uL (2.7-7.7); Neutrophil % 63.9 % (47-70); Platelet Count 178 K/mm3 (150-450); RBC Distribution Width CV 11.9 % (11.6-14.6); RBC Distribution Width SD 41.3 fl (35.1-43.9); Red Blood Count 4.39 M/mm3 (4.6-6.2); White Blood Count 8.6 K/mm3 (4.4-11.0)
[2024-09-03 14:34] LABS: ALB/GLOB Ratio 1.2 RATIO (0.9-2.4); AST(SGOT) 20 U/L (15-37); Alanine Aminotransfer ALT/SGPT 23 U/L (16-61); Albumin, Serum 3.4 g/dL (3.2-5.0); Alkaline Phosphatase 49 U/L (45-117); Anion Gap 5 (5-15); BUN 16 mg/dL (7-18); BUN/Creat Ratio 17.4 RATIO (10-20); Calcium,Total 8.5 mg/dL (8.5-10.1); Chloride 111 mmol/L (98-107); Creatinine, Serum 0.92 mg/dL (0.70-1.30); EST Glomerular Filtration Rate 98 mL/min (>60); Est Glom Filt Rate - Afr Amer 118 mL/min (>60); Estimated Creatinine Clearance 112.41 ml/min; Globulin 2.9 g/dL (2.2-4.2); Glucose 93 mg/dL (74-106); Potassium 3.7 mmol/L (3.5-5.1); Protein, Total 6.3 g/dL (6.4-8.2); Sodium Level 139 mmol/L (136-145)
[2024-09-03] MEDS: levETIRAcetam IV 1,000 MG/100 ML BAG 400 MG IV ×2 (15:06→22:54)
[2024-09-03] MEDS: 0.9% Saline Lock 10 ML Syringe IV (22:54)
[2024-09-04] MEDS: Phenobarbital 32.4 MG Tablet 97.2 MG PO ×2 (01:09→05:02)
[2024-09-04 01:14] VITALS: BP 126/73; PULSE 70; RESP 16; TEMP 37.2; O2SAT 97
[2024-09-04 01:17] VITALS: BP 126/73; PULSE 70; RESP 16; TEMP 37.2; O2SAT 97
[2024-09-04 05:10] VITALS: BP 129/70; PULSE 73; RESP 16; TEMP 36.9; O2SAT 96; BMI 24.3
--- NOTE | 2024-09-04 07:45 | PCM.PN.INT ---
Assessment & Plan Assessment/Plan (1) Alcohol abuse: (2) Seizure: PLAN: Plan RECOMMENDATIONS: 1. Continue phenobarbital taper. 2. Outpatient follow-up with neurology as recommended. 3. The patient is medically stable for transfer out of the intensive care unit. 4. Will sign off at this time. Please call if we can be of any additional assistance. IMPRESSIONS: 1. New onset seizures in the setting of alcohol withdrawal The patient presented to the hospital with questionable new onset seizure activity in the setting of acute alcohol withdrawal. The patient has an extensive alcohol dependency history and quit cold turkey approximately 7 days ago. At this time, the patient has been appropriately loaded on Keppra and will be maintained on seizure precautions with as needed Ativan. EEG demonstrated no evidence of epileptiform discharges. The patient was evaluated by neurology, who recommended outpatient follow-up. Continue medical management of alcohol withdrawal, per hospitalist. 2. History of tobacco and marijuana dependency Complicates care, management, recovery and prognosis. Continue supportive measures as noted above. This note was generated with [employer] dictation software. It may contain incorrect words, spelling, and punctuation that were not noted in checking the note before signing. Subjective Subjective The patient was seen and examined at the bedside this morning. Events from the last 24 hours have been reviewed. The patient is currently afebrile, hemodynamically stable and maintaining appropriate oxygen saturations on room air. The patient has no specific complaints this morning. He is anxious to be discharged home. EEG completed yesterday was normal. Objective Data Objective Data The patient's most recent lab work, culture data and imaging studies have all been personally reviewed. Vital Signs: Vital Signs Temp Pulse Resp BP Pulse Ox O2 Del Method 98.5 F 73 16 129/70 H 96 Room Air 09/04/24 05:10 09/04/24 05:10 09/04/24 05:10 09/04/24 05:10 09/04/24 05:10 09/04/24 05:10 Oxygen Delivery Method Room Air Weight: 174 lb 2.643 oz Body Mass Index (BMI) 24.3 Intake & Output: Intake and Output for Last 24 Hours 09/02/24 09/03/24 09/04/24 23:59 23:59 23:59 Intake Total 1292.10 / 1302.20 297.53 / 297.53 750 / 750 Output Total 1250 / 1250 Balance 1292.10 / 602.20 -952.47 / -952.47 750 / 750 Lab / Micro Data Attestation: I reviewed the patient's lab results. 09/03/24 13:40 09/03/24 13:40 Labs: Laboratory Results - last 24 hr 09/03/24 13:40: WBC 8.6, RBC 4.39 L, Hgb 14.4, Hct 41.2, MCV 93.8, MCH 32.8 H, MCHC 35.0, RDW Std Deviation 41.3, RDW Coeff of Melvin 11.9, Plt Count 178, MPV 10.3, Immature Gran % (Auto) 0.500, Neut % (Auto) 63.9, Lymph % (Auto) 23.9, [place] % (Auto) 7.6, Eos % (Auto) 3.2, Baso % (Auto) 0.9, Absolute Neuts (auto) 5.5, Absolute Lymphs (auto) 2.05, Nucleated RBC % 0, Sodium 139, Potassium 3.7, Chloride 111 H, Carbon Dioxide 23.0, Anion Gap 5, BUN 16, Creatinine 0.92, Estim Creat Clear Calc 112.41, Est GFR (MDRD) Af Amer 118, Est GFR (MDRD) Non-Af 98, BUN/Creatinine Ratio 17.4, Glucose 93, Calcium 8.5, Total Bilirubin 0.70, AST 20, ALT 23, Alkaline Phosphatase 49, Total Protein 6.3 L, Albumin 3.4, Globulin 2.9, Albumin/Globulin Ratio 1.2 Radiography Diagnostic Testing: Radiology Impression Brain MRI 09/03/24 09:00 IMPRESSION: Small right frontal lobe contusion 1. Single ovoid rounded area of bright signal in the caudate nucleus lentiform junction on the right seen on image series 6 and series 5 most likely representing a posttraumatic contusion. There is no associated hemorrhage or vasogenic edema with this finding. Normal remaining white matter tracts of the supratentorial brain. Electronically Signed: Jaydon Benson MD at 15:38 EST Reading Location ID and State: [facility] / [place] , Service support , Physical Exam Const alert, oriented x3 and no apparent distress General Appearance: cooperative HEENT normocephalic, head/scalp atraumatic and moist oral mucous membranes Eyes EOMs intact bilaterally, conjunctivae normal and no scleral icterus Neck supple General: trachea midline Chest inspection of chest normal Resp normal respiratory effort Auscultation: Negative for rales, rhonchi or wheezes Cardio regular rate and regular rhythm GI normal to inspection, nondistended, normoactive bowel sounds Extremity no clubbing, cyanosis or edema Skin no rashes or lesions noted Neuro CN's II-XII intact bilaterally, moves all extremities and no focal motor deficits Psych cooperative and affect normal Charges/Coding Visit Charges Inpatient E&M: 30005 Subs Hosp L2
--- NOTE | 2024-09-04 08:45 | DCINST_ITS ---
Discharge Instructions Diet Discharge Diet: No restrictions DC O2, CPAP, BIPAP needs Home O2 Discharge instructions: No Dressing / Incision Discharge Activity: May Not Drive (Until cleared by neurologist as an outpatient) Weight Bearing Status: Weight bearing as tolerated Dressing / Incision Call your doctor if you observe: Fever of 101 or Higher, Coldness, Increased Pain, Numbness or Tingling, Change in Color, Inability to urinate, Inability to have a bowel movement, Shortness of breath, Dizziness, Fainting spells, Swelling in the ankles, Chest pain, Prolonged hiccupping, Increased palpitations (irregular heartbeat) and Calf discomfort Follow Up Care When: IN 2 WEEKS Test Results: Test results from this visit will be discussed in further detail at your follow- up appointment, if applicable. Discharge Plan Admission Admit Date/Time: 09/02/24 14:06 Primary Reason for Your Visit: Generalized seizure, 2 episode/alcohol withdrawal Attending Provider: Juvencio Etienne Primary Care Provider: Link Lazaro Consulting Providers: Malinda Lott; Teresa Stuart; Kendrick Koroma; Sheryl Eckert; Maria Del Carmen Yanez; James Clifford; Luana Smith; Jane Yañez; Juan Deluca; Martha Yin; Franklin Oneil; Tomer Latham; Roel Mendez; Tracie John; Karan aMe; Kevin Asif; Bhupendra Barclay; Raghu Baez; Marlen Adams; Shadi Myrick; Estella Gtz; Colin Handy; Parker Cook; PANCHITO CAMERON; Mars Waddell; Xi Marie; Cb Cabrera; Ramakrishna Helms; Henok Wiley; Yaya Tapia; Darrel Damian; Dom Mckeon; Luiz Loco; Felipa Roa; Jerardo Devries; Phil Cook; Luis Bean; Salome Langford; Aubrie So; Abhay,Praveen; Ryder Jiang; Johnathan Ovalles; Bladimir Orozco; Tamika Marsh; Alexandrea Barnes; Marcel Lunsford; Иван Vick; Dusty Cormier; Natalie Adams Instructions Additional Instructions / Restrictions: Follow-up alcohol rehab program,180 as outpatient. CIWA score 0 Discharge Orders/Prescriptions Prescriptions: New thiamine HCl (vitamin B1) 100 mg Tablet 100 mg PO DAILYCM 30 Days Qty: 30 4RF folic acid 1 mg Tablet 1 mg PO DAILY@0800 30 Days Qty: 30 4RF Referrals / Follow Up: Enoch Davis MD [Non-Staff -Ordering Privileges] - Within 2 Weeks Link Lazaro PA [Primary Care Provider] - Disposition Disposition (needs filled in before D/C Order can be placed): Home, Self Care
[2024-09-04 08:50] VITALS: BP 124/71; PULSE 87; RESP 16; TEMP 36.9; O2SAT 97
--- NOTE | 2024-09-04 08:50 | PCM.DC.SUM ---
Providers Date of Admission: 09/02/24 Date of Discharge: 09/04/24 Primary Care Physician: AMINATA Rea Consultations 09/02/24 17:11 Consult: Tele-Neurology Routine Consulting Provider: [facility] Reason for Consult: seizure EMERGENT Consult: No Notified: Yes Date Notified: 09/02/24 Time Notified: 17:59 Method of Notification: Answering Service Nursing Unit Staff Notify [facility] of Tele-Neurology Consult: Yes 09/02/24 18:30 Consult: [employer] / Pulmonary Medicine Routine Consulting Provider: [facility]/Pulmonary Med Reason for Consult: seizure EMERGENT Consult: No Notified: Yes Date Notified: 09/03/24 Time Notified: 05:51 Method of Notification: Text Reason For Visit: SEIZURE SUSPSECTED FROM ETOH WITHDRAWAL Diagnosis Discharge Diagnosis (1) Alcohol abuse: Status: Acute Code(s): F10.10 - Alcohol abuse, uncomplicated (2) Seizure: Status: Acute Code(s): R56.9 - Unspecified convulsions Plan 39-year-old gentleman was admitted after brought by EMS for seizure. At work, patient came out of the freezer falling to the ground and began having a seizure lasting few minutes and patient had loss of consciousness for approximately couple minutes as documented by EMS from the bystander report. He was also noted dried blood from the right nostril, redness in the left periorbital area and patient was confused and does not remember about the event. Patient does not have prior history of seizure. Patient also has a history of drinking alcohol, 5 beers daily for last 5 years and quit suddenly 5 days ago. 1. New onset tonic-clonic seizure, most likely alcohol withdrawal seizure: It seems patient had 2 s generalized tonic-clonic seizure episode 1 during work and another MRI suite which was complicated with agitation and mild combativeness and required 4 point leather restraint. As per nursing staff, he had restrained at that time but now he is off restraint. Awake and alert oriented x 3. Currently patient going EEG. MRI pending. CT head unenhanced reported normal. Patient was treated with IV Keppra inpatient -Phenobarb for alcohol withdrawal and as needed Ativan available [employer] and neurologist consulted. 09/04: Brain MRI reviewed. It shows a small right frontal lobe contusion with single ovoid area in the caudate nucleus most likely represent posttraumatic contusion. No associated hemorrhage/vasogenic edema. Normal remaining white matter. Patient was seen by [facility] neurologist here. Patient is advised to follow-up with neurologist in 2 weeks. Assessment was made of alcohol withdrawal seizure. Prescription given for thiamine and folic acid 2. Possible acute alcohol withdrawal syndrome with seizure with history of chronic alcohol use and dependence: As per H&P, patient had some auditory hallucination. Patient on phenobarbital based order set along with other adjunctive medications gabapentin, Bentyl, Vistaril, clonidine, Klonopin as needed for alcohol withdrawal symptom control. Patient is on thiamine and folate acid. CIWA monitor. nurse care manager 180 consulted. 09/04: CIWA score is 0. Does not have tremors, hallucinations, delusion or other symptoms of alcohol withdrawal. Patient feels low energy. Advised to follow-up 180. 3. Closed head injury/left eye contusion: Bruising is getting better -No orbital fracture noted on CT of the head and CT of the brain was otherwise unremarkable 4. History of remote tobacco use and marijuana use: Reinforced continue cessation. Patient no longer using marijuana or smoking cigarettes or nicotine use. DVT prophylaxis -Low risk -Encourage frequent and early ambulation CODE STATUS -Full code Discharge medication reconciliation done. Discharge follow-up instructions completed. Discharge process discussed with the patient and all questions were answered to patient's satisfaction. Follow with PCP in 1 to 2 weeks Total time spent, exact 35 minutes on discharge meds reconciliation, examination, coordination of care with nurses and ancillary staff, review of imaging and blood test and discussion with the patient on follow-up instructions. Medications at Discharge Home Medications folic acid 1 mg tablet 1 mg PO DAILY@0800 30 days #30 tabs 09/04/24 thiamine HCl (vitamin B1) 100 mg tablet 100 mg PO DAILYCM 1 month #30 tabs 09/04/24 Physical Exam Narrative Seen and examined. Patient was yesterday for seizure. Patient does not remember the seizure event. Physical exam General: Alert, Oriented x3, Cooperative HEENT: Conjunctiva clear atraumatic, PERRLA, EOMI, Normocephalic Oral: No dried blood in the oral cavity or nasal cavit. No Gingival or Mucosal Lesions/ Ulcerations Neck: Supple, No JVD, Negative Carotid Bruits Chest wall/Lungs: Air entry diminished in bilateral lung bases. No crepitation/rhonchi Cardiovascular: Regular rate, Regular Rhythm, Normal S1, Normal S2, No M/G/R Abdomen: Bowel Sounds Present, Soft, Non Tender, Non-Distended : No dysuria. No renal angle tenderness. No suprapubic tenderness. Extremities: No edema, Capillary Refill Less than 3 Seconds Skin: Faint bruise/abrasion over left periorbital area. Musculoskeletal: No Tenderness to Palpation of Joints or Extremities Neurological: Cranial nerves II-XII grossly intact, DTR 2+/4. No acute focal neurological deficit. Psych/Mental Status: Normal Affect, Appropriate. Weight / BMI Weight Weight: 174 lb 2.643 oz Body Mass Index (BMI) 24.3 ABG / Lab / Microbiology Data 09/03/24 13:40 09/03/24 13:40 Laboratory: Laboratory Results - last 24 hr 09/03/24 13:40: WBC 8.6, RBC 4.39 L, Hgb 14.4, Hct 41.2, MCV 93.8, MCH 32.8 H, MCHC 35.0, RDW Std Deviation 41.3, RDW Coeff of Melvin 11.9, Plt Count 178, MPV 10.3, Immature Gran % (Auto) 0.500, Neut % (Auto) 63.9, Lymph % (Auto) 23.9, Miller % (Auto) 7.6, Eos % (Auto) 3.2, Baso % (Auto) 0.9, Absolute Neuts (auto) 5.5, Absolute Lymphs (auto) 2.05, Nucleated RBC % 0, Sodium 139, Potassium 3.7, Chloride 111 H, Carbon Dioxide 23.0, Anion Gap 5, BUN 16, Creatinine 0.92, Estim Creat Clear Calc 112.41, Est GFR (MDRD) Af Amer 118, Est GFR (MDRD) Non-Af 98, BUN/Creatinine Ratio 17.4, Glucose 93, Calcium 8.5, Total Bilirubin 0.70, AST 20, ALT 23, Alkaline Phosphatase 49, Total Protein 6.3 L, Albumin 3.4, Globulin 2.9, Albumin/Globulin Ratio 1.2 Radiography Diagnostic Testing: Radiology Impression Brain MRI 09/03/24 09:00 IMPRESSION: Small right frontal lobe contusion 1. Single ovoid rounded area of bright signal in the caudate nucleus lentiform junction on the right seen on image series 6 and series 5 most likely representing a posttraumatic contusion. There is no associated hemorrhage or vasogenic edema with this finding. Normal remaining white matter tracts of the supratentorial brain. Electronically Signed: Jaydon Benson MD at 15:38 EST Reading Location ID and State: [facility] / [place] , Service support , D/C Instructions Discharge Diet: No restrictions Weight Bearing Status: Weight bearing as tolerated Call your doctor if you observe: Fever of 101 or Higher, Coldness, Increased Pain, Numbness or Tingling, Change in Color, Inability to urinate, Inability to have a bowel movement, Shortness of breath, Dizziness, Fainting spells, Swelling in the ankles, Chest pain, Prolonged hiccupping, Increased palpitations (irregular heartbeat) and Calf discomfort DC O2, CPAP, BIPAP Needs Home O2 Discharge instructions: No When: IN 2 WEEKS Meaningful Use Info Meaningful Use Meaningful Use Diagnoses (Choose all that apply): None applicable Ischemic Stroke Statin Dosing Therapy Reference: STATIN DOSE THERAPY REFERENCE: * Patients > 75 years receive moderate or high dose statin therapy. * Patients 75 years or YOUNGER should receive HIGH intensity statin dose unless contraindicated. You will be required to document reason for non-treatment if statin daily dose does not meet guidelines. HIGH DOSE STATIN THERAPY DAILY Atorvastatin > than or = to 40 mg Rosuvastatin > than or = to 20 mg Amlodipine + Atorvastatin > than or = to 2.5/40 mg Ezetimibe + Simvastatin 10/80 mg Simvastatin 80mg Discharge Plan Admission Admit Date/Time: 09/02/24 14:06 Primary Reason for Your Visit: Generalized seizure, 2 episode/alcohol withdrawal Attending Provider: Juvencio Etienne Primary Care Provider: Link Lazaro Consulting Providers: Malinda Lott; Teresa Stuart; Kendrick Koroma; Sheryl Eckert; Maria Del Carmen Yanez; James Clifford; Luana Smith; Jane Yañez; Juan Deluca; Martha Yin; Franklin Oneil; Tomer Latham; Roel Mendez; Tracie John; Karan Mae; Kevin Asif; Bhupendra Barclay; Raghu Baez; Marlen Adams; Shadi Myrick; Estella Gtz; Colin Handy; Parker Cook; PANCHITO CAMERON; Mars Waddell; Xi Marie; Cb Cabrera; Ramakrishna Helms; Henok Wiley; Yaya Tapia; Darrel Damian; Dom Mckeon; Luiz Loco; Felipa Roa; Jerardo Devries; Phil Cook; Luis Bean; Salome Langford; Aubrie So; Praveen Blank; Ryder Jiang; Johnathan Ovalles; Bladimir Orozco; Tamika Marsh; Alexandrea Barnes; Marcel Lunsford; Иван Vick; Dusty Cormier; Natalie Adams Instructions Additional Instructions / Restrictions: Follow-up alcohol rehab program,180 as outpatient. CIWA score 0 Discharge Orders/Prescriptions Prescriptions: New thiamine HCl (vitamin B1) 100 mg Tablet 100 mg PO DAILYCM 30 Days Qty: 30 4RF folic acid 1 mg Tablet 1 mg PO DAILY@0800 30 Days Qty: 30 4RF Referrals / Follow Up: Enoch Davis MD [Non-Staff -Ordering Privileges] - Within 2 Weeks Link Lazaro PA [Primary Care Provider] - Disposition Disposition (needs filled in before D/C Order can be placed): Home, Self Care Charges/Coding Visit Charges Inpatient E&M: 61924 Disch Hosp >30min
[2024-09-04] MEDS: Folic Acid 1 MG Tablet PO (08:54)
[2024-09-04] MEDS: Thiamine Hydrochloride 100 MG Tablet PO (08:54)
== END 2024-09-04 10:54 | disposition home or self-care (01) | DRG 897 ==
LOC: ED 14:14 → MS3 15:26 → ICU 19:16
PROVIDERS: Internal Medicine Critical Care Medicine; Admitting Provider Internal Medicine; Emergency Provider Emergency Medicine; PCP Physician Assistant; Visit Provider Internal Medicine
DX: F10.231 Alcohol dependence with withdrawal delirium (principal); G40.509 Epileptic seizures related to external causes, not intractable, without status epilepticus; S06.9X1A Unspecified intracranial injury with loss of consciousness of 30 minutes or less, initial encounter; R44.0 Auditory hallucinations; S05.12XA Contusion of eyeball and orbital tissues, left eye, initial encounter; F12.90 Cannabis use, unspecified, uncomplicated; W19.XXXA Unspecified fall, initial encounter; Z87.891 Personal history of nicotine dependence
CPT/HCPCS: 36415; 70450; 70553; 80053; 82077; 83690; 85025; 85610; 85730; 95819; 99285; A9575; A4216